=== PATIENT | female | born 1945 | race Caucasian/White ===

== ENCOUNTER 2019-05-17 16:01 | Emergency (ER) | payer MEDICARE, BC ==
[2019-05-17 16:14] VITALS: BP 165/87; PULSE 111
[2019-05-17] MEDS ORDERED: Diphtheria,Pertussis(Acell),Tetanus Vaccine 0.5 ML SDV IM ONE (16:20)
--- NOTE | 2019-05-17 16:21 | EDM.PDOC ---
ED HPI GENERAL MEDICAL PROBLEM - General Chief Complaint: Laceration Stated Complaint: Laceration/skin tear Time Seen by Provider: 05/17/19 16:15 Source of Information: Reports: Patient History Limitations: Reports: No Limitations - History of Present Illness INITIAL COMMENTS - FREE TEXT/NARRATIVE: Patient is a 73-year-old female who came in with a laceration in her right hand approximately half a centimeter states that she was cleaning her yard when she got poked in the hand by a branch states her tetanus is not up-to-date Onset: Sudden Duration: Hour(s):, Constant Location: Reports: Upper Extremity, Right Quality: Reports: Ache Severity: Mild Improves with: Reports: Movement Worsens with: Reports: Movement Associated Symptoms: Reports: No Other Symptoms Right Hand Pain Score (Numeric/FACES): 1 - Related Data Allergies Allergy/AdvReac Type Severity Reaction Status Date / Time lidocaine Allergy Anaphylactic Verified 05/17/19 16:04 Shock morphine Allergy Headache Unverified 03/02/15 14:38 Home Meds: Home Meds Alendronate Sodium 1 tab PO WEEKLY 05/17/19 [History] ED ROS GENERAL - Review of Systems Review Of Systems: See Below Constitutional: Reports: No Symptoms HEENT: Reports: No Symptoms Respiratory: Reports: No Symptoms Cardiovascular: Reports: No Symptoms Endocrine: Reports: No Symptoms GI/Abdominal: Reports: No Symptoms : Reports: No Symptoms Musculoskeletal: Reports: No Symptoms Skin: Reports: No Symptoms Neurological: Reports: No Symptoms Psychiatric: Reports: No Symptoms Hematologic/Lymphatic: Reports: No Symptoms Immunologic: Reports: No Symptoms ED EXAM, SKIN/RASH Exam: See Below Exam Limited By: No Limitations General Appearance: Alert, WD/WN, No Apparent Distress Ears: Normal External Exam, Normal Canal, Hearing Grossly Normal, Normal TMs Nose: Normal Inspection, Normal Mucosa, No Blood Throat/Mouth: Normal Inspection, Normal Lips, Normal Teeth, Normal Gums, Normal Oropharynx, Normal Voice, No Airway Compromise Head: Atraumatic, Normocephalic Neck: Normal Inspection, Supple, Non-Tender, Full Range of Motion Respiratory/Chest: No Respiratory Distress, Lungs Clear, Normal Breath Sounds, No Accessory Muscle Use, Chest Non-Tender Cardiovascular: Normal Peripheral Pulses, Regular Rate, Rhythm, No Edema, No Gallop, No JVD, No Murmur, No Rub GI/Abdominal: Normal Bowel Sounds, Soft, Non-Tender, No Organomegaly, No Distention, No Abnormal Bruit, No Mass Back Exam: Normal Inspection, Full Range of Motion, NT Extremities: Normal Inspection, Non-Tender, No Pedal Edema, Limited Range of Motion Neurological: Alert, Oriented, CN II-XII Intact, Normal Cognition, Normal Gait, Normal Reflexes, No Motor/Sensory Deficits Psychiatric: Normal Affect, Normal Mood Skin: Wound/Incision (Half centimeter right hand dorsal aspect) Location, Skin: Upper Extremity, Right Characteristics: Linear Lymphatic: No Adenopathy ED SKIN PROCEDURES - Laceration/Wound Repair Right Dorsal Hand Lac/Wound length In cm: 0.5 Appearance: Superficial Distal NVT: Neuro & Vascular Intact Skin Prep: Saline Exploration/Debridement/Repair: In a Bloodless Field Closed with: Dermabond Course - Vital Signs Last Recorded V/S: Last Vital Signs Temp 97.4 F 05/17/19 16:13 Pulse 111 H 05/17/19 16:13 Resp 18 05/17/19 16:13 BP 165/87 H 05/17/19 16:13 Pulse Ox 96 05/17/19 16:13 Departure - Departure Time of Disposition: 16:30 Disposition: Home, Self-Care 01 Condition: Good Clinical Impression: Broken skin - Discharge Information *PRESCRIPTION DRUG MONITORING PROGRAM REVIEWED*: No *COPY OF PRESCRIPTION DRUG MONITORING REPORT IN PATIENT DOLLY: No Instructions: Laceration Care, Adult, [id number] Referrals: Mahogany Lyles PA [Primary Care Provider] - Care Plan Goals: Patient sent home to follow-up with primary tetanus toxoid given
== END 2019-05-17 17:00 | disposition home or self-care (01) ==
LOC: LL.ED 16:01
DX: S61.411A Laceration without foreign body of right hand, initial encounter (principal); Z23 Encounter for immunization; Z88.5 Allergy status to narcotic agent; Z88.8 Allergy status to other drugs, medicaments and biological substances; W26.8XXA Contact with other sharp object(s), not elsewhere classified, initial encounter
CPT/HCPCS: 12001; 12011; 90471; 90715; 99282

== ENCOUNTER 2020-01-13 17:03 | Emergency (ER) | payer MEDICARE, BC ==
--- NOTE | 2020-01-13 17:17 | EDM.PDOC ---
ED HPI GENERAL MEDICAL PROBLEM - General Chief Complaint: Lower Extremity Injury/Pain Stated Complaint: right outer leg pain and swelling Time Seen by Provider: 01/13/20 17:10 Source of Information: Reports: Patient, Old Records ([facility] chart/EMR) History Limitations: Reports: No Limitations - History of Present Illness INITIAL COMMENTS - FREE TEXT/NARRATIVE: The patient drove herself to the emergency room via private automobile for evaluation of 7/10 throbbing right leg pain after an upright vacuum pillow cleaner landed on her leg while she was vacuuming in her bathroom at about 16:50 hours this afternoon. Note that the patient did not take any medications or have any treatment prior to arrival. She did take 2 Aleve earlier this morning, however. No previous history of injury to this area with the patient denying any fall, exacerbation of her neck/back pain, paresthesias, neurological deficits, etc.. No recent history of abdominal pain, heartburn, nausea, diarrhea, melena, gross hematochezia, or any food intolerance, including fatty foods, etc.. The patient also denies any recent fever, cough, wheezing, dyspnea, etc.. Onset: Today, Sudden Onset Date: 01/13/20 Onset Time: 16:50 Duration: Constant Location: Reports: Lower Extremity, Right. Denies: Head, Face, Neck, Chest, Abdomen, Back, Pelvis, Upper Extremity, Left, Upper Extremity, Right, Lower Extremity, Left, Radiates to Quality: Reports: Burning, Same as Previous Episode, Throbbing Severity: Moderate Improves with: Reports: None Worsens with: Reports: None Context: Reports: Trauma (As above). Denies: Sick Contact Associated Symptoms: Denies: Confusion, Chest Pain, Cough, Diaphoresis, Fever/ Chills, Headaches, Loss of Appetite, Malaise, Nausea/Vomiting, Shortness of Breath, Syncope, Weakness Treatments GARMENT SEWER HAND: Reports: Other (see below) (None) right calf Pain Score (Numeric/FACES): 7 - Related Data Allergies Allergy/AdvReac Type Severity Reaction Status Date / Time lidocaine Allergy Anaphylactic Verified 01/13/20 17:05 Shock morphine Allergy Headache Verified 01/13/20 17:05 Home Meds: Home Meds Albuterol Sulfate [Proair Hfa] 2 puff INH Q4H PRN 06/13/19 [History] Alendronate Sodium 70 mg PO WEEKLY 06/13/19 [History] Cetirizine [ZyrTEC] 10 mg PO DAILY PRN 06/13/19 [History] Ipratropium/Albuterol Sulfate [Iprat-Albut 0.5-3(2.5) MG/3 ML] 3 ml IH Q4H PRN 06/13/19 [History] Naproxen Sodium [Aleve] 2 tab PO DAILY PRN 06/13/19 [History] cephALEXin [Cephalexin] 500 mg PO ASDIRECTED 06/13/19 [History] Past Medical History HEENT History: Reports: Allergic Rhinitis Cardiovascular History: Reports: Arrhythmia, CAD, Heart Murmur, High Cholesterol , Other (See Below) Other Cardiovascular History: Heart murmur versus mitral valve prolapse with current SBE prophylaxis. Borderline Coronary artery disease and cardiomegaly by chest x-ray. PACs. Respiratory History: Reports: Bronchitis, Recurrent, COPD, Intubation, Previous , Other (See Below). Denies: Intubation, Difficult Gastrointestinal History: Reports: Cholelithiasis, Chronic Constipation, Other ( See Below) Other Gastrointestinal History: LFTs elevationmild/? Fatty liver. Nonsymptomatic cholelithiasis Genitourinary History: Reports: Renal Calculus (Right nephrolithiasis with no history of urolithiasis) CERTIFIED INCOME TAX PREPARER History: Reports: , Other (See Below). Denies: Dysfunctional Uterine Bleeding, Fibroids, Spontaneous : 2 Para: 2 LMP (Approximate): Other (See Below) Other CERTIFIED INCOME TAX PREPARER History: Surgical menopause as below. Full term without complications during pregnancies or deliveries. Musculoskeletal History: Reports: Arthritis, Back Pain, Chronic, Fracture, Fibromyalgia, Neck Pain, Chronic, Osteoarthritis, Osteoporosis, Other (See Below ) Other Musculoskeletal History: Right proximal femoral postoperative hip fracture in 2015. Osteoarthritis with radiculopathy especially at C4-C5 and L4 L5 secondary to disc prolapses with mild C4-C5 spinal stenosis. Previous pain clinic management. 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 Psychiatric History: Reports: Anxiety, Depression Endocrine/Metabolic History: Reports: Hypothyroidism, Multinodular Thyroid, Osteoporosis, Other (See Below) Oncologic (Cancer) History: Reports: Cervix, Other (See Below) Other Oncologic History: Cervical dysplasia as below. - Past Surgical History HEENT Surgical History: Reports: Adenoidectomy, Tonsillectomy, Other (See Below) Other HEENT Surgeries/Procedures: Left sided TMJ surgery in the 1980s. Tonsillectomy and adenoidectomy at age 3. GI Surgical History: Reports: Colonoscopy, Other (See Below) Other GI Surgeries/Procedures: Normal colonoscopy on 06/19/13. Female Surgical History: Reports: Hysterectomy, Salpingo-Oophorectomy, Other (See Below). Denies: D&C, Tubal Ligation Other Female Surgeries/Procedures: Complete hysterectomy with bilateral salpingo-oophorectomy in about 1998 secondary to cervical dysplasia. Musculoskeletal Surgical History: Reports: Hip Replacement, ORIF, Other (See Below) Other Musculoskeletal Surgeries/Procedures:: Initial right hip TEP in 2014 with subsequent proximal hip fracture secondary to this prosthesis with repeat hip ball replacement and subsequent ORIF in 2017. - Past Imaging History Past Imaging History: Reports: Cardiac Echo (Suboptimal on 03/02/15 with ejection fraction of 6065 percent), Carotid US (02/20/19.), CAT Scan (CT scan of the C-spine on 08/07/19. CT of the head on 02/20/19.), DEXA Scan (Last on .), Mammogram (Last on 02/21/19.), MRI (MRI of the lumbar spine on 06/06/13 and 07/26/11.), Stress Testing (Negative Cardiolite stress test on 03/04/15.), Ultrasound (Thyroid ultrasounds on 02/20/19 and 02/16/09. Right breast ultrasound on 06/23/15.), Venous Doppler (Right leg on 04/07/15.) Social & Family History - Family History Cardiac: Reports: CAD, NC, Stent Other Cardiac Family History: Father with history of PTCA/stent with subsequent postoperative fatal NC at age 81. Musculoskeletal: Reports: Arthritis, Neck Pain, Chronic, Osteoarthritis, Osteoporosis, Other (See Below) Other Musculoskeletal Family History: father, sister= arthritis, neck pain= father Endocrine/Metabolic: Reports: Diabetes, type II, Obesity/MBI 30+, Other (See Below). Denies: Diabetes, Gestational, Diabetes, Type I, Diabetes Mellitus, Type 3c, IDDM Other Endocrine/Metabolic Family History: Obesity in brother, sister, and mother with brother having diabetes mellitus. Oncologic: Reports: Pancreatic, Other (See Below) Other Oncologic Family History: Sister with fatal pancreatic cancer at age 72. - Tobacco Use Smoking Status *Q: Current Every Day Smoker Tobacco Use Within Last Twelve Months: Cigarettes Years of Tobacco use: 53 Packs/Tins Daily: 1 Packs/Tins Daily Comment: Started smoking at age 21. Used Tobacco, but Quit: No Smoking Cessation Information Provided To Patient: Yes Second Hand Smoke Exposure: No Second Hand Smoke Education Provided: No - Caffeine Use Caffeine Use: Reports: Coffee - Living Situation & Occupation Living situation: Reports: (Patient has 2 children one boy one girl), Alone Occupation: Retired (Teacher.) Review of Systems - Review of Systems Review Of Systems: Comprehensive ROS is negative, except as noted in HPI. ED EXAM, GENERAL - Physical Exam Exam: See Below Exam Limited By: No Limitations General Appearance: Alert, WD/WN, No Apparent Distress, Anxious (Moderate) Head: Atraumatic, Normocephalic. No: Facial Swelling, Facial Tenderness, Sinus Tenderness Neck: Normal Inspection, Supple, Non-Tender, Full Range of Motion. No: Lymphadenopathy (L), Lymphadenopathy (R), Thyromegaly Respiratory/Chest: No Respiratory Distress, No Accessory Muscle Use, Chest Non- Tender, Rhonchi (Occasional diffuse bilateral). No: Wheezing, Pleural Rub Cardiovascular: Normal Peripheral Pulses, Regular Rate, Rhythm, No Edema, No Gallop, No JVD, No Murmur, No Rub. No: Friction Rub Peripheral Pulses: 2+: Radial (L), Radial (R), Dorsalis Pedis (L), Dorsalis Pedis (R) GI/Abdominal: Normal Bowel Sounds, Soft, Non-Tender, No Organomegaly, No Distention, No Abnormal Bruit, No Mass, Pelvis Stable. No: Guarding (Female) Exam: Deferred Rectal (Female) Exam: Deferred Back Exam: Normal Inspection, Full Range of Motion. No: CVA Tenderness (L), CVA Tenderness (R), Muscle Spasm Extremities: Normal Range of Motion, No Pedal Edema, Other (68 centimeter diameter moderate hematoma over the posterior distal right tibial region with no evidence of deformity, crepitation, fracture, etc.). No: Non-Tender ( Moderate tenderness over hematoma), Pedal Edema, Janny's Sign, Increased Warmth Neurological: Alert, Oriented, CN II-XII Intact, Normal Cognition, Normal Gait, No Motor/Sensory Deficits Psychiatric: Anxious (Moderate), Depressed Mood (Borderline) Skin Exam: Warm, Dry, Intact, Other (Subcutaneous hematoma as above). No: Diaphoretic, Ecchymosis, Wound/Incision Lymphatic: No Adenopathy ED TRAUMA EXTREMITY PROCEDURES - I&D Site: Right posterior calf Skin Prep: Chlorhexidine (Hibiciens) Local Anesthesia: Lidocaine: 1% Plain Local Anesthetic Volume: Other (6 cc) Area Incised With: Needle (19-gauge) Drainage: Bloody (15 ml by aspiration) Probed to Break Up Loculations: No Packed With: None Sterile Dressing: Adhesive Dressing, 4x4(s) Complications: No Course - Vital Signs Last Recorded V/S: Last Vital Signs Temp 36.4 C 01/13/20 17:10 Pulse 96 01/13/20 17:10 Resp 20 01/13/20 17:10 BP 161/94 H 01/13/20 17:10 Pulse Ox 97 01/13/20 17:10 Vital Signs - 24 hr 01/13/20 17:10 Temperature [ 36.4 C Temporal] Pulse, 96 Peripheral [ Right Pulse Oximetry] Respiratory 20 Rate Blood Pressure 161/94 H [Right Upper Arm] O2 Sat by Pulse 97 Oximetry - Orders/Labs/Meds Orders: Active Orders 24 hr Category Date Time Status Obtain Past Medical Record [OM.PC] Routine Oth 01/13/20 17:17 Active Labs: None Meds: Medications Discontinued Medications Generic Name Dose Route Start Last Admin Trade Name Yinka PRN Reason Stop Dose Admin Acetaminophen 1,000 mg 01/13/20 17:41 01/13/20 17:46 Tylenol Extra Strength PO 01/13/20 17:42 1,000 mg ONETIME ONE Administration Lidocaine HCl 5 ml 01/13/20 17:17 01/13/20 18:29 Xylocaine-Mpf 1% INJECT 01/13/20 17:18 5 ml ONETIME ONE Administration Lidocaine HCl 5 ml 01/13/20 17:19 01/13/20 18:29 Xylocaine-Mpf 1% INJECT 01/13/20 17:20 5 ml ONETIME ONE Administration Neomycin/Polymyxin/Bacitracin 1 each 01/13/20 17:19 01/13/20 18:29 Triple Antibiotic Oint TOP 01/13/20 17:20 1 each ONETIME ONE Administration - Radiology Interpretation Free Text/Narrative:: None Departure - Departure Time of Disposition: 18:10 Disposition: Home, Self-Care 01 Condition: Good Clinical Impression: Subcutaneous hematoma, Tobacco abuse counseling, Mixed anxiety depressive disorder, Hypothyroidism (acquired), Elevated blood pressure reading COPD (chronic obstructive pulmonary disease) Qualifiers: COPD type: emphysema Emphysema type: panlobular Qualified Code(s): J43.1 - Panlobular emphysema Osteoarthritis Qualifiers: Osteoarthritis location: multiple joints Osteoarthritis type: primary Qualified Code(s): M89.49 - Other hypertrophic osteoarthropathy, multiple sites Hypertension Qualifiers: Hypertension type: essential hypertension Qualified Code(s): I10 - Essential ( primary) hypertension - Discharge Information *PRESCRIPTION DRUG MONITORING PROGRAM REVIEWED*: Not Applicable *COPY OF PRESCRIPTION DRUG MONITORING REPORT IN PATIENT DOLLY: Not Applicable Instructions: Steps to Quit Smoking, [id number], Health Risks of Smoking, Contusion, [id number] Referrals: Ellyn Kearns NP [Primary Care Provider] - Forms: ED Department Discharge Additional Instructions: 1. Follow up with your regular provider in 10-14 days as needed, if symptoms persist. Bring these discharge instructions with you to that visit.. You may return with your regular provider in 1-2 days, if swelling remains refractory to recommended treatment. 2. Tylenol 650 mg by mouth every 4 hours when necessary as directed. 3. No aspirin, Aleve, ibuprofen, or other NSAIDs for the next 48-72 hours and/ or longer depending on how the swelling and/or bleeding improves 4. Ice packs, leg elevation, and Lyndon wraps to the right leg as discussed. You may likely compress the swelling on your leg to express any blood, if pain does occur 5. Immediately after this visit verify that your cellular telephone's voicemail has been activated and is empty. Also verify that your home telephone 's answering machine is operating properly and has space to receive messages. Note that it is sometimes necessary for us to be able to contact you at a later date to discuss your medical care. 6. Please remember that we are ALWAYS here for you and want to answer any questions you may have. Feel free to call the hospital any time and we call you back GRADY. Sepsis Event Note - Focused Exam Vital Signs: Vital Signs Temp Pulse Resp BP Pulse Ox 01/13/20 17:10 36.4 C 96 20 161/94 H 97 Date Exam was Performed: 01/13/20 Time Exam was Performed: 18:48 - Problem List & Annotations (1) Subcutaneous hematoma SNOMED Code(s): 4049640 Code(s): T14.8XXA - OTHER INJURY OF UNSPECIFIED BODY REGION, INITIAL ENCOUNTER Status: Acute Priority: High Current Visit: Yes Onset Date: Annotation/Comment:: Various therapeutic options were discussed with the patient with conservative approach initially. 15 mL of blood was aspirated from the subcutaneous hematoma by means of a #19-gauge needle with excellent improvement of patient's symptoms. Neosporin pressure dressing placed by the nurse. Patient counseled on how to softly express any returning hematoma, leg elevation, avoidance of NSAIDs, etc. as per discharge instructions. Close follow -up by her regular provider as needed with earlier follow-up, if symptoms remain refractory to therapy with probable I&D and thrombus evacuation with packing needed at that time. No evidence of thrombus during today's evaluation, however. (2) COPD (chronic obstructive pulmonary disease) SNOMED Code(s): 42592657 Code(s): J44.9 - CHRONIC OBSTRUCTIVE PULMONARY DISEASE, UNSPECIFIED Status : Chronic Priority: Medium Current Visit: Yes Annotation/Comment:: No recent fever or bronchitic type symptoms. Stable by history. Qualifiers: COPD type: emphysema Emphysema type: panlobular Qualified Code(s): J43.1 - Panlobular emphysema (3) Tobacco abuse counseling SNOMED Code(s): 790580265, 432390764, 803235293 Code(s): Z71.6 - TOBACCO ABUSE COUNSELING Status: Chronic Priority: Medium Current Visit: Yes Annotation/Comment:: Stop all tobacco use GRADY as directed/per provided information and consider contacting Quit LIne, etc.. (4) Osteoarthritis SNOMED Code(s): 863579734 Code(s): M19.90 - UNSPECIFIED OSTEOARTHRITIS, UNSPECIFIED SITE Status: Chronic Priority: Medium Current Visit: Yes Annotation/Comment:: Otherwise , stable by history with no other injury from today's accident with stable chronic neck pain. Qualifiers: Osteoarthritis location: multiple joints Osteoarthritis type: primary Qualified Code(s): M89.49 - Other hypertrophic osteoarthropathy, multiple sites (5) Mixed anxiety depressive disorder SNOMED Code(s): 537406011 Code(s): F41.8 - OTHER SPECIFIED ANXIETY DISORDERS Status: Chronic Priority: Medium Current Visit: Yes Annotation/Comment:: Moderate anxious affect during today's evaluation. Continue to observe closely by her regular provider. (6) Hypothyroidism (acquired) SNOMED Code(s): 623932625 Code(s): E03.9 - HYPOTHYROIDISM, UNSPECIFIED Status: Chronic Priority: Medium Current Visit: Yes Annotation/Comment:: Status post right partial thyroidectomy as above. No current thyroid therapy with additional history of thyroid nodules. (7) Hypertension SNOMED Code(s): 39068741 Code(s): I10 - ESSENTIAL (PRIMARY) HYPERTENSION Status: Chronic Priority : Medium Current Visit: Yes Annotation/Comment:: Elevated blood pressures in the emergency room with anxiety and pain components. No current medical therapy. Continue to observe closely by regular provider. Qualifiers: Hypertension type: essential hypertension Qualified Code(s): I10 - Essential (primary) hypertension - Problem List Review Problem List Initiated/Reviewed/Updated: Yes - My Orders Last 24 Hours: My Active Orders 01/13/20 17:17 Obtain Past Medical Record [OM.PC] Routine - Assessment/Plan Last 24 Hours: My Active Orders 01/13/20 17:17 Obtain Past Medical Record [OM.PC] Routine Assessment:: As above Plan: As above. Extensive precautions were given to the patient, who is in agreement with the treatment plan. See Patient Instructions for further treatment and plan.
[2020-01-13 17:19] VITALS: BP 161/94; PULSE 96
[2020-01-13] MEDS ORDERED: Bacitracin/Neomycin/Polymyxin B Oint 0.9 GM U/D Packet TOP ONE (17:19)
[2020-01-13] MEDS ORDERED: Acetaminophen 500 MG Tab PO ONE (17:41)
== END 2020-01-13 18:10 | disposition home or self-care (01) ==
LOC: LL.ED 17:03
DX: S80.11XA Contusion of right lower leg, initial encounter (principal); L03.115 Cellulitis of right lower limb; I10 Essential (primary) hypertension; E03.9 Hypothyroidism, unspecified; F41.8 Other specified anxiety disorders; J43.1 Panlobular emphysema; M89.49 Other hypertrophic osteoarthropathy, multiple sites; I25.10 Atherosclerotic heart disease of native coronary artery without angina pectoris; F17.210 Nicotine dependence, cigarettes, uncomplicated; Z71.6 Tobacco abuse counseling; Z88.8 Allergy status to other drugs, medicaments and biological substances; Z88.5 Allergy status to narcotic agent; Z79.899 Other long term (current) drug therapy; W20.8XXA Other cause of strike by thrown, projected or falling object, initial encounter
CPT/HCPCS: 10060; 99283; A9270; J2001

== ENCOUNTER 2022-06-11 13:25 | Emergency (ER) | payer MEDICARE, BC ==
[2022-06-11 13:42] VITALS: BP 155/86; PULSE 122
== END 2022-06-11 14:37 | disposition home or self-care (01) ==
LOC: SUPCPDRO 13:25 → LL.ED 13:25
DX: T63.441A Toxic effect of venom of bees, accidental (unintentional), initial encounter (principal); I25.10 Atherosclerotic heart disease of native coronary artery without angina pectoris; J44.9 Chronic obstructive pulmonary disease, unspecified; Z88.6 Allergy status to analgesic agent; Z88.4 Allergy status to anesthetic agent; Z88.5 Allergy status to narcotic agent; Z88.0 Allergy status to penicillin; Z88.1 Allergy status to other antibiotic agents; Z79.899 Other long term (current) drug therapy; Z90.710 Acquired absence of both cervix and uterus
CPT/HCPCS: 99282; 99283

== ENCOUNTER 2022-06-12 16:15 | Emergency (ER) | payer MEDICARE, BC ==
[2022-06-12] MEDS ORDERED: Sodium Chloride 0.9% 10 ML Syringe FLUSH PRN (16:17)
[2022-06-12 17:13] LABS: CHLORIDE,CL 102 mmol/L (98-107); SODIUM,NA 144 mmol/L (136-145)
[2022-06-12 17:17] LABS: ESTIMATED GFR 56 mL/min (>=60)
[2022-06-12] MEDS: Cephalexin 250 MG Cap PO ONE (17:20)
[2022-06-12] MEDS: Triamcinolone Acetonide 40 MG/ML 1 ML SDV INJECT ONE (17:20)
[2022-06-12] MEDS: Triamcinolone Acetonide 40 MG/ML 1 ML SDV ONE (17:23)
[2022-06-12 18:10] VITALS: BP 118/52; PULSE 68
== END 2022-06-12 17:30 | disposition home or self-care (01) ==
LOC: LL.ED 16:15
DX: T63.441A Toxic effect of venom of bees, accidental (unintentional), initial encounter (principal); E83.42 Hypomagnesemia; I25.10 Atherosclerotic heart disease of native coronary artery without angina pectoris; E78.00 Pure hypercholesterolemia, unspecified; J44.9 Chronic obstructive pulmonary disease, unspecified; E03.9 Hypothyroidism, unspecified; Z88.4 Allergy status to anesthetic agent; Z88.5 Allergy status to narcotic agent; Z88.0 Allergy status to penicillin; Z88.8 Allergy status to other drugs, medicaments and biological substances; Z88.1 Allergy status to other antibiotic agents
CPT/HCPCS: 36415; 80053; 83735; 85025; 96372; 99283; 99284; A9270; J3301

== ENCOUNTER 2022-08-27 20:16 | Emergency (ER) | payer MEDICARE, BC ==
[2022-08-27 20:26] VITALS: BP 163/94; PULSE 95
== END 2022-08-27 21:00 | disposition home or self-care (01) ==
LOC: LL.ED 20:16
DX: S81.811A Laceration without foreign body, right lower leg, initial encounter (principal); I25.10 Atherosclerotic heart disease of native coronary artery without angina pectoris; E78.00 Pure hypercholesterolemia, unspecified; J44.9 Chronic obstructive pulmonary disease, unspecified; E03.9 Hypothyroidism, unspecified; F17.210 Nicotine dependence, cigarettes, uncomplicated; Z88.4 Allergy status to anesthetic agent; Z88.5 Allergy status to narcotic agent; Z88.0 Allergy status to penicillin; Z88.1 Allergy status to other antibiotic agents; W26.8XXA Contact with other sharp object(s), not elsewhere classified, initial encounter
CPT/HCPCS: 99283

== ENCOUNTER 2023-06-14 06:56 | Day surgery (SDC) | payer MEDICARE, BC ==
[2023-06-14] MEDS ORDERED: Sodium Chloride 0.9% 10 ML Syringe FLUSH PRN (07:00)
[2023-06-14] MEDS ORDERED: Lactated Ringers 1,000 ML IV SCH (07:00)
[2023-06-14] MEDS ORDERED: Midazolam 1 MG/ML 2 ML SDV ONE (07:26)
[2023-06-14] MEDS ORDERED: fentaNYL 100 MCG/2 ML SDV ONE (07:26)
[2023-06-14] MEDS ORDERED: Propofol 200 MG/20 ML SDV ONE (07:27)
[2023-06-14] MEDS ORDERED: ceFAZolin 1 GM Vial ONE ×2 (07:53→08:45)
[2023-06-14] MEDS ORDERED: Bupivacaine 0.5% 10 ML SDV ONE (08:04)
[2023-06-14] MEDS ORDERED: Ketorolac 30 MG/ML SDV IVPUSH ONE ×2 (08:08)
[2023-06-14] MEDS ORDERED: Ondansetron 4 MG/2 ML SDV IVPUSH ONE ×2 (08:08)
[2023-06-14] MEDS ORDERED: Dexamethasone 10 MG/ML SDV IVPUSH ONE ×2 (08:08)
[2023-06-14] MEDS ORDERED: Bupivacaine 0.5%/EPINEPHrine 1:200,000 30 ML SDV INFILT ONE (08:26)
[2023-06-14 12:00] VITALS: PULSE 76
[2023-06-14 12:12] VITALS: BP 113/99
== END 2023-06-14 13:30 | disposition home or self-care (01) ==
LOC: LL.SDS 06:56
PROVIDERS: ATTEND Surgery
DX: K40.20 Bilateral inguinal hernia, without obstruction or gangrene, not specified as recurrent (principal); D17.79 Benign lipomatous neoplasm of other sites; J44.9 Chronic obstructive pulmonary disease, unspecified; J84.10 Pulmonary fibrosis, unspecified; F17.200 Nicotine dependence, unspecified, uncomplicated; Z88.5 Allergy status to narcotic agent; Z88.8 Allergy status to other drugs, medicaments and biological substances
CPT/HCPCS: 00830; C1781; J0690; J1100; J1885; J2250; J2405; J2704; J3010; J3490; J7120